=== PATIENT | female | born 2000 | race Asian ===

== ENCOUNTER → 2020-05-20 10:37 | Outpatient (CLI) | payer OTHER, SELFPAY ==
--- NOTE | ~2020-05-20 | XR_ITS ---
EXAMINATION: XR wrist RT min 3V EXAM DATE: 05/20/2020 11:17 INDICATION: Fell on right wrist one week ago, persistent pain. TECHNIQUE: Right wrist frontal, frontal with ulnar deviation, oblique and lateral projections obtain ed and reviewed. There is no prior study for comparison. FINDINGS: Right wrist scapholunate joint space is maintained. There are no acute fractures or disloca tions identified. There is no subcutaneous gas. The soft tissue is unremarkable. There are no rad iopaque foreign bodies. IMPRESSION: 1. Unremarkable right wrist exam. Reviewed, dictated and finalized at location B.
== END ==
DX: S69.91XA Unspecified injury of right wrist, hand and finger(s), initial encounter (principal); W19.XXXA Unspecified fall, initial encounter
CPT/HCPCS: 73110

== ENCOUNTER 2021-01-06 12:37 | Outpatient (CLI) | payer OTHER, SELFPAY ==
--- NOTE | ~2021-01-06 | MR_ITS ---
EXAMINATION: MR wrist RT w con DATE: 01/06/2021 15:01 INDICATION: Right wrist pain TECHNIQUE: Magnetic resonance imaging (MRI) arthrogram of the right wrist was performed following int ra-articular administration of a dilute gadolinium contrast mixture but without intravenous contrast. Details of the joint injection have been dictated separately. Sequences performed include axial T1-w eighted FSE, axial T2-weighted FS FSE, sagittal and coronal T1-weighted FS FSE and T2-weighted FS FSE and coronal FGRE 3-D. COMPARISON: Fluoroscopic images dated 01/06/2021 FINDINGS: Intrinsic ligaments: The scapholunate and lunotriquetral ligaments are normal. No contrast enhancement of the midcarpal mainor int to suggest occult perforation of either ligament. Triangular fibrocartilage complex (TFCC): The triangular fibrocartilage including its foveal and styloid attachments as well as the dorsal and volar radioulnar ligaments are normal. The ulnar collateral ligament, ulnotriquetral ligament and men iscal homologue are normal. The extensor carpi ulnaris tendon sheath is normal. No contrast enhanceme nt of the distal radioulnar joint to suggest occult full-thickness perforation of the trigonal fibroc artilage complex. Extensor wrist: Extensor tendons of the wrist are normal. No tenosynovitis. Flexor wrist: The flexor tendons of the wrist are normal. No abnormality in the carpal tunnel with normal median n erve. Guyon's canal: Guyon's canal including the ulnar nerve and artery are normal. Bones/other: Normal marrow signal. No fracture, erosions, avascular necrosis or abnormal marrow replacing process. Joint spaces are normal with no focal cartilage defects appreciated. There is contrast within a 6 x 4 x 3 mm ganglion cyst located volar to the distal radius arising from the wrist joint at the ulnar side of the scaphoid fossa. There is some extra-articular extravasation of contrast at the palmar/uln ar aspect of the wrist likely arising from the ulnotriquetral recess. IMPRESSION: 1. Small ganglion cyst arising from the volar aspect of the radioscaphoid articulation. Otherwise unr emarkable right wrist MRI arthrogram. Reviewed, dictated and finalized at location A. IMPRESSION: 1. Small ganglion cyst arising from the volar aspect of the radioscaphoid artic ulation. Otherwise unremarkable right wrist MRI arthrogram.
--- NOTE | ~2021-01-06 | XR_ITS ---
EXAMINATION: XR arthrogram wrist RT DATE: 01/06/2021 14:29 INDICATION: Right wrist sprain presenting with right wrist pain TECHNIQUE: A time-out was performed to verify the patient's name, date of , and procedure to b e performed. The procedure including the risks, benefits, and alternatives was discussed with the pat ient. Risks discussed included bleeding and infection. The patient understood the risks and agreed to proceed. The skin overlying the radioscaphoid articulation of the right wrist joint was prepped and draped in usual sterile fashion. Anesthetic was administered with 1% lidocaine subcutaneously. A 2 2 G needle was advanced under fluoroscopic guidance into the joint. Injection of 0.2 mL of Omnipaque 240 confirmed intra-articular position of the needle. Subsequently, injectate consisting of 4 mL of 2:1:1 mixture of sterile saline:Omnipaque 240:1% lidocaine mixed 200:1 with 529 mg/mL Multihance berny olinium contrast was injected with intermittent fluoroscopy confirming intra-articular administration . The needle was removed and the entry site was cleaned and dressed. There were no immediate complic ations. Fluoroscopy exposure time was 0.2 minutes. The total number of images was 62. Total DAP was 0 .08 mGycm^2 FINDINGS: Real-time fluoroscopy demonstrates the needle in the right wrist joint. Contrast opacifies a small ganglion cyst which projects over the distal radius. No evident contrast extension into the m idcarpal or distal radioulnar joints. Patient's pain prior to procedure:10/05. Patient's pain followi ng the procedure: 09/04. IMPRESSION: 1. Right wrist joint injection of a dilute gadolinium contrast mixture for subsequent MR arthrogram f indings of which will be dictated separately. Reviewed, dictated and finalized at location A. IMPRESSION: 1. Right wrist joint injection of a dilute gadolinium contrast mixture for subs equent MR arthrogram findings of which will be dictated separately.
== END 2021-01-06 12:38 | disposition home or self-care (01) ==
LOC: ANHIMG 12:46
PROVIDERS: Visit Provider Internal Medicine
DX: G56.03 Carpal tunnel syndrome, bilateral upper limbs (principal); S63.501A Unspecified sprain of right wrist, initial encounter; X58.XXXA Exposure to other specified factors, initial encounter; M67.431 Ganglion, right wrist
CPT/HCPCS: 25246; 73115; 73222; A9577; Q9966